=== PATIENT | female | born 1960 | race Caucasian/White ===

== ENCOUNTER 2019-09-06 08:42 | Day surgery (SDC) | payer MEDICARE ==
[2019-09-06] MEDS ORDERED: Sodium Chloride 0.9% 1,000 ML IV SCH (09:45)
[2019-09-06] MEDS ORDERED: Propofol 200 MG/20 ML SDV ONE (09:52)
[2019-09-06] MEDS ORDERED: Midazolam 1 MG/ML 2 ML SDV ONE (09:52)
[2019-09-06] MEDS ORDERED: fentaNYL 100 MCG/2 ML SDV ONE (09:52)
--- NOTE | 2019-09-07 08:42 | OR ---
DATE OF PROCEDURE: 09/06/2019 SURGEON: Krish Pratt MD PROCEDURE: Colonoscopy. FINDINGS: Normal colonoscopy. PREOPERATIVE DIAGNOSIS: Family history of colorectal cancer. POSTOPERATIVE DIAGNOSIS: Family history of colorectal cancer. RISKS: Risks, benefits, alternatives, and limitations including, but not limited to infection, bleeding, and perforation were explained to the patient, who wished to proceed. PROCEDURE IN DETAIL: The patient was placed in left lateral decubitus position. Digital rectal exam was performed without abnormality. The scope was introduced and advanced atraumatically to the ileocecal valve. The scope was brought back through the ascending, transverse, descending colon, and retroflexed. There was some solid and liquid stool, ran and approximately 95% of the luminal surface could be seen. No abnormalities on retroflexion. No old or new blood. No diverticulosis. No polyps. No areas of concern. The patient tolerated the procedure well. Krish Pratt MD /[id number]
== END 2019-09-06 11:35 | disposition home or self-care (01) ==
LOC: JP.SDS 08:42
PROVIDERS: ATTEND Surgery
DX: Z12.11 Encounter for screening for malignant neoplasm of colon (principal); F32.9 Major depressive disorder, single episode, unspecified; Z80.0 Family history of malignant neoplasm of digestive organs; Z88.5 Allergy status to narcotic agent
CPT/HCPCS: G0105; J2250; J2704; J3010; J7030

== ENCOUNTER 2025-04-29 06:28 | Day surgery (SDC) | payer MEDICARE ==
[2025-04-29] MEDS ORDERED: Propofol 200 MG/20 ML SDV ONE (07:36)
[2025-04-29] MEDS ORDERED: fentaNYL 50 MCG/ML SDV ONE (07:36)
[2025-04-29] MEDS ORDERED: Midazolam 1 MG/ML 2 ML SDV ONE (07:36)
[2025-04-29] MEDS: Lactated Ringers 1,000 ML IV SCH (07:41)
== END 2025-04-29 09:00 | disposition home or self-care (01) ==
LOC: JP.SDS 06:28
PROVIDERS: ATTEND Surgery
DX: Z12.11 Encounter for screening for malignant neoplasm of colon (principal); K57.30 Diverticulosis of large intestine without perforation or abscess without bleeding; K63.89 Other specified diseases of intestine; Z88.5 Allergy status to narcotic agent; Z88.8 Allergy status to other drugs, medicaments and biological substances; Z79.899 Other long term (current) drug therapy; Z86.0100 Personal history of colon polyps, unspecified; Z83.719 Family history of colon polyps, unspecified
CPT/HCPCS: G0121; J2250; J2704; J3010; J7120; 00812-QZ